=== PATIENT | female | born 1930 | race Caucasian/White ===

== ENCOUNTER 2016-09-20 09:35 | Emergency (ER) | payer MEDICARE ==
[~2016-09-20] VITALS: Ht 160 cm; Wt 70.9 kg
[2016-09-20 09:43] VITALS: BP 150/85
[2016-09-20] MEDS ORDERED: PRINIVIL5 MG PO (10:03)
[2016-09-20] MEDS ORDERED: TYLENOL W/COD1 UDTAB PO (10:03)
[2016-09-20] MEDS ORDERED: NORCO 325 MG-51 TAB PO (10:48)
[2016-09-20 11:03] VITALS: PULSE 69
== END 2016-09-20 11:04 | disposition home or self-care (01) ==
LOC: COL.ER 09:35
DX: S52.592A Other fractures of lower end of left radius, initial encounter for closed fracture (principal); S52.612A Displaced fracture of left ulna styloid process, initial encounter for closed fracture; X58.XXXA Exposure to other specified factors, initial encounter; I10 Essential (primary) hypertension

== ENCOUNTER 2016-09-21 11:30 | Day surgery (SDC) | payer MEDICARE, OTHER ==
[2016-09-18 13:34] LABS: HEMATOCRIT 37.7 % (37.0-47.0); HEMOGLOBIN 12.8 g/dl (12.5-16.0); MEAN CELL VOLUME 90 fl (80.0-100.0); MEAN CORPUSCULAR HEMOGLOBIN 31 pg (27.0-31.0); MEAN CORPUSCULAR HGB CONC 34 g/dl (33.0-37.0); MEAN PLATELET VOLUME 9.9 fl (7.4-10.4); PLATELET COUNT 270 K/mm3 (130-400); RED BLOOD COUNT 4.18 M/mm3 (4.10-5.30); REDCELL DISTRIBUTION WIDTH-CV 12.5 % (11.5-14.5); WHITE BLOOD COUNT 9.3 K/mm3 (4.8-10.8)
[2016-09-18 13:45] LABS: ADJUSTED CALCIUM 8.9 mg/dL (8.4-10.2); ALBUMIN 4.2 gm/dL (3.5-5.0); CALCIUM 9.1 mg/dL (8.4-10.2); CREATININE, serum 1.08 mg/dL (0.52-1.25); POTASSIUM 4.6 mmol/L (3.4-5.0); TOTAL PROTEIN 7.4 gm/dL (6.4-8.2)
[~2016-09-21] VITALS: Ht 162.6 cm; Wt 74.0 kg
[2016-09-21] VITALS (10 sets, daily range): BP systolic 121–182; BP diastolic 48–87; PULSE 78–97; TEMP 98.2–98.7
[~2016-09-21 11:30] MED LIST: NORCO 325 MG-51 TAB PO; PRINIVIL5 MG PO; TYLENOL W/COD1 UDTAB PO
[2016-09-22 01:54] VITALS: BP 115/61; PULSE 75; TEMP 98.5
[2016-09-22 04:49] VITALS: BP 136/57; PULSE 77; TEMP 98.5
[2016-09-22 10:18] VITALS: BP 126/56; PULSE 72; TEMP 98.3
[2016-09-22 13:43] VITALS: BP 115/48; PULSE 96; TEMP 99.2
== END 2016-09-22 17:52 | disposition home or self-care (01) ==
LOC: SDCO 11:30 → SURG 11:30 → SDCO 16:15 → SURG 16:15 → SDCO 09-22 17:52
PROVIDERS: Orthopaedic Surgery
DX: S52.592A Other fractures of lower end of left radius, initial encounter for closed fracture (principal); S52.612A Displaced fracture of left ulna styloid process, initial encounter for closed fracture; M19.90 Unspecified osteoarthritis, unspecified site; I10 Essential (primary) hypertension; M81.0 Age-related osteoporosis without current pathological fracture; W01.0XXA Fall on same level from slipping, tripping and stumbling without subsequent striking against object, initial encounter
CPT/HCPCS: OP; C1713; J0690; J2250; J2704; J2795; J7120

== ENCOUNTER 2016-11-24 14:45 | Outpatient (RCR) | payer MEDICARE | END 2017-01-20 | disposition still patient (30) | LOC: MKS.ESL.OT | DX: S52.292D Other fracture of shaft of left ulna, subsequent encounter for closed fracture with routine healing (principal); Z98.1 Arthrodesis status | CPT/HCPCS: G8984-GO; G8985-GO ==

== ENCOUNTER → 2017-07-30 | Outpatient (REF) ==
[2017-07-30 18:59] LABS: THYROID STIMULATING HORMONE 2.72 uIU/mL (0.465-4.680)
== END ==
LOC: ZLAB.WCH 17:47
PROVIDERS: Family Medicine
DX: Z01.89 Encounter for other specified special examinations (principal)

== ENCOUNTER → 2020-01-15 | Outpatient (CLI) | payer MEDICARE | LOC: COL.RAD 01-04 14:30 | DX: I12.9 Hypertensive chronic kidney disease with stage 1 through stage 4 chronic kidney disease, or unspecified chronic kidney disease (principal); N18.3 Chronic kidney disease, stage 3 (moderate); Z96.0 Presence of urogenital implants ==